=== PATIENT | male | born 1940 | race Caucasian/White ===

== ENCOUNTER 2021-02-12 12:11 | Emergency (ER) | payer MEDICARE ==
[~2021-02-12] VITALS: Ht 165.1 cm; Wt 71.7 kg
[2021-02-12] MEDS ORDERED: ZESTRIL5 MG PO (12:30)
[2021-02-12] MEDS ORDERED: LIPITOR 10 MG10 M1 PO (12:30)
[2021-02-12] MEDS ORDERED: SYNTHROID75 MC1 PO (12:30)
[2021-02-12] MEDS ORDERED: PREDNISONE 10 M10 MG PO (12:46)
[2021-02-12 12:55] VITALS: BP 179/89
== END 2021-02-12 12:55 | disposition home or self-care (01) ==
LOC: M.ERS 12:11
DX: R21 Rash and other nonspecific skin eruption (principal); I10 Essential (primary) hypertension; E03.9 Hypothyroidism, unspecified; E78.5 Hyperlipidemia, unspecified; Z79.899 Other long term (current) drug therapy